=== PATIENT | female | born 1985 | race Two or more races ===

== ENCOUNTER 2024-07-21 02:33 | Emergency (ER) | payer MEDICAID, SELFPAY ==
[2024-07-21 02:37] VITALS: BMI 32.3
--- NOTE | 2024-07-21 02:45 | PD.EDDENTL ---
ED Dental RME/HPI General Chief complaint: Fever Stated complaint: COUGH AND FEVER Time Seen by Provider: 07/21/24 02:42 Source: patient, RN notes reviewed and old records reviewed Arrival date/time: 07/21/24 02:33 Mode of arrival: ambulatory Limitations: no limitations RME / HPI RME / HPI Narrative: 39yof presents to the ED for 5-day history of intermittent fever, congestion, cough. Patient c/o sore throat and bodyaches. No shortness of breath, chest pain, nausea/vomiting or headache reported. She is taking Advil occasionally since symptom onset with some relief. Related Data Previous Rx's ?Medication ?Instructions ?Recorded ibuprofen 800 mg tablet 800 mg PO Q8H PRN pain #30 tabs 11/22/23 metronidazole 500 mg tablet 500 mg PO Q12H #20 tabs 11/22/23 acetaminophen 500 mg tablet 1,000 mg (2 x 500 mg) PO Q6H PRN 07/21/24 (Tylenol Extra Strength) fever or pain #30 tabs benzonatate 100 mg capsule 100 mg PO Q6H PRN cough #20 caps 07/21/24 dextromethorphan-guaifenesin ER 60 1 tab PO BID PRN cold symptoms #20 07/21/24 mg-1,200 mg tab,extend tabs release,12hr (Mucinex DM) pseudoephedrine HCl 120 mg 120 mg PO BID PRN nasal congestion 07/21/24 tablet,extended release (Sudafed #12 tabs 12 Hour) Allergies Allergy/AdvReac Type Severity Reaction Status Date / Time No Known Allergies Allergy Verified 07/21/24 02:36 Review of Systems Review of Systems Systems Reviewed: All systems reviewed, normal except as documented Constitutional Constitutional: Reports chills, Reports fever(s) and Denies headache(s) ENT Ears, Nose, Mouth, and Throat: Denies dizziness, Denies headache(s), Reports nasal congestion and Reports sore throat Cardiovascular Cardiovascular: Denies chest pain and Denies dyspnea Respiratory Respiratory: Reports cough and Denies dyspnea Gastrointestinal Gastrointestinal: Denies nausea and Denies vomiting Musculoskeletal Musculoskeletal: Reports myalgias Neurologic Neurologic: Denies dizziness and Denies headache(s) Past Medical History Family History OTHER FAMILY HX: Significant significant for diabetes and hypertension Surgical History SURGICAL: Positive Section Social History SMOKING STATUS: Never smoker SUBSTANCE USE: does not use ALCOHOL: Never Past Medical History Comments PMH COMMENT: Denies past medical history ED Exam General Limitations: Present no limitations General appearance: Present alert and in no apparent distress Head Head exam: Present atraumatic and normocephalic Eye Eye exam: Present normal appearance, PERRL and EOMI ENT ENT exam: Present mucous membranes moist, TM's normal bilaterally and other (Mild UAC, mild pharyngeal erythema. No tonsillar swelling or exudate, uvula midline) Neck Neck exam: Present normal inspection and full ROM; Absent tenderness or meningismus Chest Chest inspection: Present normal inspection and symmetric chest wall rise Respiratory Respiratory exam: Present normal lung sounds bilaterally and other (No wheezing, rales or rhonchi); Absent respiratory distress Cardiovascular Cardiovascular exam: Present regular rate and normal rhythm Extremities Exam Extremities exam: Present normal inspection and full ROM Neurological Exam Neurological exam: Present alert and oriented X3 Psychiatric Psychiatric exam: Present normal affect and normal mood Skin Skin exam: Present warm, dry, intact and normal color Course Quality Measures none Orders Category Date Time Status Bedside COVID-19 Antigen Test NOW Care 07/21/24 02:45 Active Bedside Influenza A&B Antigen Test NOW Care 07/21/24 02:45 Completed Strep A Rapid Stat Lab 07/21/24 02:52 Completed Acetaminophen Tab [Tylenol ES Tab] Med 07/21/24 02:45 Discontinued 1,000 mg PO X1 ONE Dexamethasone Inj [Decadron Inj] Med 07/21/24 02:45 Discontinued 10 mg PO X1 ONE Vital Signs Vital signs: Vital Signs Temperature 98.2 F 07/21/24 02:50 Pulse Rate 84 07/21/24 02:50 Respiratory Rate 19 07/21/24 02:50 Blood Pressure 122/88 H 07/21/24 02:50 Pulse Oximetry (%) 97 07/21/24 02:50 Oxygen Delivery Method Room Air 07/21/24 02:50 Dental / Oral MDM Narrative MDM Narrative:: 39yof presents to the ED for 5-day history of intermittent fever, congestion, cough. Patient c/o sore throat and bodyaches. No shortness of breath, chest pain, nausea/vomiting or headache reported. She is taking Advil occasionally since symptom onset with some relief. Patient is well-appearing, afebrile, vitals are stable. No evidence of respiratory distress or hypoxia. Suspect viral etiology of symptoms. Encouraged rest, fluids, symptomatic treatment, fever management prn. Stable for discharge, RTED precautions given. Patient data External records reviewed:: [facility] previous records (Admit 09/20/2018 for delivery) Clinical information provided by:: patient Social determinants that could affect healthcare access:: other (specify) (Poor access to healthcare, acculturation difficulty) Patient has the following chronic illnesses:: None How is presenting disease/condition affected by chronic disease/condition?: no chronic disease Evaluation data The following diagnostics were reviewed and interpreted by me:: lab results Lab and/or radiology exams considered but not ordered:: CXR: Lungs clear, no respiratory distress or hypoxia Interpretation Summary: Negative strep Negative COVID/flu Medications / Prescriptions Medications or Prescriptions considered but not ordered:: No antibiotics or antivirals recommended at this time Medication administrations:: Medication Administration History Discontinued Medications Acetaminophen (Acetaminophen 500 Mg Tablet) 1,000 mg PO X1 ONE Stop: 07/21/24 02:46 Last Admin: 07/21/24 03:09 Dose: 1,000 mg Documented By: CRISELDA Dexamethasone Sodium Phosphate (Dexamethasone Sod Phos Inj 10 Mg/Ml Vial) 10 mg PO X1 ONE Stop: 07/21/24 02:46 Last Admin: 07/21/24 03:09 Dose: 10 mg Documented By: CRISELDA Comments: given po Above medications administered in ED Consultations Consultation(s) initiated? (list below): No Diagnosis Dental Differential Diagnosis: other (URI, viral illness, COVID, flu, pharyngitis, tonsillitis, pneumonia, bronchitis) Most likely diagnosis given after review of the tests above:: URI, viral pharyngitis Admission Indicated Admission indicated?: not indicated Admission Request Was there a request for admission?: No Disposition Plan Disposition Plan: Discharge Discharge Attestation Discharge Attestation: The patient and all family members were given an opportunity to ask questions and understood the discharge instructions. Discharge instructions specifically effects, indications for sooner follow up or return to the emergency department, and the expected course of current diagnosis. Patient condition: Stable Discharge Plan Plan Patient Disposition: HOME (Self Care) Patient condition on transfer: Stable Prescriptions/Referrals Prescriptions/Med Rec: New acetaminophen [Tylenol Extra Strength] 500 mg tablet 1,000 mg PO Q6H PRN (Reason: fever or pain) Qty: 30 0RF dextromethorphan-guaifenesin [Mucinex DM] 60-1,200 mg tablet extended release 12 hr 1 tab PO BID PRN (Reason: cold symptoms) Qty: 20 0RF benzonatate 100 mg capsule 100 mg PO Q6H PRN (Reason: cough) Qty: 20 0RF pseudoephedrine HCl [Sudafed 12 Hour] 120 mg tablet extended release 120 mg PO BID PRN (Reason: nasal congestion) Qty: 12 0RF No Action ibuprofen 800 mg tablet 800 mg PO Q8H PRN (Reason: pain) Qty: 30 0RF metronidazole 500 mg tablet 500 mg PO Q12H Qty: 20 0RF Referrals: Jordan Gallego MD [Primary Care Provider] - In 1 week Problem List Clinical Impression: URI (upper respiratory infection), Viral pharyngitis Patient/Caregiver Discharge Instructions Education Materials: Self-Care for Sore Throats, ED URI, Viral, No Abx (Adult) Print Language: Macedonian Stand Alone Forms: Casie Award Info., Patient Portal Info Letter 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
[2024-07-21 02:50] VITALS: BP 122/88; PULSE 84; RESP 19; TEMP 36.8; O2SAT 97; BMI 32.3
[2024-07-21] MEDS: ACETAMINOPHEN 500 MG TABLET 1000 MG PO (03:09)
[2024-07-21] MEDS: DEXAMETHASONE SOD PHOS INJ 10 MG/ML VIAL PO (03:09)
[2024-07-21 03:31] LABS: Strep A Rapid Negative (Negative)
== END 2024-07-21 04:00 | disposition home or self-care (01) ==
PROVIDERS: Physician Assistant; Emergency Provider Emergency Medicine; PCP Family Medicine
DX: J02.8 Acute pharyngitis due to other specified organisms (principal); B97.89 Other viral agents as the cause of diseases classified elsewhere
CPT/HCPCS: 87400; 87651; 87811; 99283; J1100; A9270